=== PATIENT | male | born 1975 | race Caucasian/White ===

== ENCOUNTER 2025-03-22 10:07 | Inpatient (IN) | payer BC ==
[2025-03-21 20:20] VITALS: BP 143/90; PULSE 69; RESP 18; TEMP 36.4; O2SAT 98
[~2025-03-22] VITALS: Ht 167.6 cm; Wt 84.8 kg
[2025-03-22 10:10] VITALS: O2SAT 98
[2025-03-22] MEDS: ASPIRIN 325MG TABLET PO ONE (10:47)
[2025-03-22 10:55] LABS: BASOPHILS % 1.6 % (0.0-2.0); EOSINOPHILS % 0.4 % (0.0-5.0); HEMATOCRIT. 45.1 % (42.0-52.0); HEMOGLOBIN. 14.9 g/dL (14.0-18.0); LYMPHOCYTES % 24.6 % (20.0-50.0); MEAN PLATELET VOLUME 10.1 fl (7.4-10.4); MONOCYTES % 8.4 % (2.0-8.0); NEUTROPHILS % 65.0 % (40.0-76.0); PLATELET 183 x1000/uL (130-400); RED BLOOD CELL COUNT 5.03 mill/uL (4.7-6.1); RED CELL DISTRIBUTION WIDTH 15.3 % (11.6-14.6)
[2025-03-22 11:10] LABS: INR 1.0
[2025-03-22 11:16] LABS: CREATININE 0.9 mg/dL (0.6-1.3); UREA NITROGEN BLOOD 8 mg/dL (9-23)
[2025-03-22 11:17] LABS: TROPONIN I HIGH SENSITIVITY 34 ng/L (3.0-53)
[2025-03-22] MEDS ORDERED: MORPHINE SULFATE 4 MG/ML INJ (FOR IV/IM USE) IV PRN (14:45)
[2025-03-22] MEDS ORDERED: ZOLPIDEM TARTRATE 5MG TABLET PO PRN (14:45)
[2025-03-22] MEDS ORDERED: MAGNESIUM/ALUMINUM HYDROXIDE/SIMETHICONE 30ML UDC PO PRN (14:45)
[2025-03-22] MEDS ORDERED: HYDROCODONE/ACETAMINOPHEN 5/325MG TABLET PO PRN (14:45)
[2025-03-22] MEDS ORDERED: ONDANSETRON HCL 4MG/2ML INJ IV PRN (14:45)
[2025-03-22] MEDS ORDERED: CLONIDINE 0.1MG TABLET PO PRN (14:45)
[2025-03-22] MEDS ORDERED: ACETAMINOPHEN 325MG TABLET PO PRN (14:45)
[2025-03-22 17:13] LABS: TROPONIN I HIGH SENSITIVITY 32 ng/L (3.0-53)
[2025-03-22] MEDS: AMLODIPINE 5MG TABLET PO SCH (19:20)
[2025-03-22 20:20] VITALS: BP 143/90; PULSE 66; PULSE 69; RESP 18; TEMP 36.4; TEMP 36.418; O2SAT 98
[2025-03-22] MEDS: ENOXAPARIN 30MG/0.3ML SYR SUBCUT SCH (21:16)
[2025-03-22 23:16] LABS: TROPONIN I HIGH SENSITIVITY 33 ng/L (3.0-53)
[2025-03-23] VITALS (7 sets, daily range): BP systolic 125–146; BP diastolic 86–100; PULSE 73–85; RESP 16–20; TEMP 36.1–36.8; O2SAT 96–98
[2025-03-23 05:34] LABS: *AMPHETAMINES SCREEN URINE NEGATIVE (NEGATIVE); *BARBITURATES SCREEN URINE NEGATIVE (NEGATIVE); *BENZODIAZEPINES SCREEN URINE NEGATIVE (NEGATIVE); *COCAINE SCREEN URINE PRESUMPTIVE POSITIVE (NEGATIVE); CANNABINOID URINE SCREEN PRESUMPTIVE POSITIVE (NEGATIVE); ECSTASY MDMA SCREEN URINE NEGATIVE (NEGATIVE); METHADONE URINE SCREEN NEGATIVE (NEGATIVE); OPIATES URINE SCREEN NEGATIVE (NEGATIVE); PHENCYCLIDINE URINE SCREEN NEGATIVE (NEGATIVE)
[2025-03-23 06:54] LABS: CLARITY URINE CLEAR (CLEAR); COLOR URINE DARK YELLOW (YELLOW); GLUCOSE URINE NEGATIVE (NEGATIVE); KETONES URINE 1+ (NEGATIVE); LEUKOCYTE ESTERASE URINE TRACE (NEGATIVE); NITRITE URINE NEGATIVE (NEGATIVE); OCCULT BLOOD URINE NEGATIVE (NEGATIVE); PH URINE 6.5 (4.5-8.0); PROTEIN URINE TRACE (NEGATIVE); SPECIFIC GRAVITY URINE 1.026 (1.005-1.030); UROBILINOGEN URINE 1.0 E.U./dL (0.2-1.0)
[2025-03-23 06:55] LABS: BACTERIA URINE NONE SEEN; RBC URINE 0-2 /hpf (0-2); SQUAMOUS EPITHELIAL CELL URINE NONE SEEN /lpf (RARE/1+)
[2025-03-23 07:14] LABS: CREATININE 0.9 mg/dL (0.6-1.3)
[2025-03-23 07:16] LABS: UREA NITROGEN BLOOD 9 mg/dL (9-23)
[2025-03-23 07:57] LABS: BASOPHILS % 2.6 % (0.0-2.0); EOSINOPHILS % 2.3 % (0.0-5.0); HEMATOCRIT. 44.7 % (42.0-52.0); HEMOGLOBIN. 15.0 g/dL (14.0-18.0); LYMPHOCYTES % 34.3 % (20.0-50.0); MEAN PLATELET VOLUME 11.1 fl (7.4-10.4); MONOCYTES % 7.3 % (2.0-8.0); NEUTROPHILS % 53.5 % (40.0-76.0); PLATELET 176 x1000/uL (130-400); RED BLOOD CELL COUNT 4.98 mill/uL (4.7-6.1); RED CELL DISTRIBUTION WIDTH 15.2 % (11.6-14.6)
[2025-03-23] MEDS ORDERED: CLON0.2T MT (07:58)
[2025-03-23] MEDS: PANTOPRAZOLE SODIUM 40 MG/VIAL IV SCH (09:31)
[2025-03-23 09:49] LABS: TROPONIN I HIGH SENSITIVITY 32 ng/L (3.0-53)
[2025-03-24] VITALS: BP 136/89; PULSE 88; RESP 20; TEMP 36.3; O2SAT 98
[2025-03-24 04:00] VITALS: BP 140/100; PULSE 77; RESP 20; TEMP 36.4; O2SAT 97
[2025-03-24 08:00] VITALS: BP 132/80; PULSE 80; RESP 16; TEMP 36.2; O2SAT 98
[2025-03-24 08:34] LABS: BASOPHILS % 1.1 % (0.0-2.0); EOSINOPHILS % 2.6 % (0.0-5.0); HEMATOCRIT. 44.5 % (42.0-52.0); HEMOGLOBIN. 14.7 g/dL (14.0-18.0); LYMPHOCYTES % 29.3 % (20.0-50.0); MEAN PLATELET VOLUME 11.4 fl (7.4-10.4); MONOCYTES % 7.9 % (2.0-8.0); NEUTROPHILS % 59.1 % (40.0-76.0); PLATELET 150 x1000/uL (130-400); RED BLOOD CELL COUNT 4.95 mill/uL (4.7-6.1); RED CELL DISTRIBUTION WIDTH 14.9 % (11.6-14.6)
[2025-03-24 10:55] LABS: CREATININE 0.9 mg/dL (0.6-1.3)
[2025-03-24 10:56] LABS: UREA NITROGEN BLOOD 9 mg/dL (9-23)
== END 2025-03-24 08:41 | disposition left against medical advice (07) | DRG 918 ==
LOC: ER 10:07 → 7WST 11:45 → EDBEDREQ 11:54 → EDBEDREQTM 11:54
PROVIDERS: ADMIT Internal Medicine; ATTEND Internal Medicine
DX: T40.5X1A Poisoning by cocaine, accidental (unintentional), initial encounter (principal); I20.0 Unstable angina; F14.10 Cocaine abuse, uncomplicated; I10 Essential (primary) hypertension; Y92.89 Other specified places as the place of occurrence of the external cause; Z71.51 Drug abuse counseling and surveillance of drug abuser
CPT/HCPCS: 36415; 71045; 80048; 80305; 81003; 84443; 84484; 85025; 85379; 93005; 93970; 99291; A4606; J1650; J2470